=== PATIENT | male | born 1955 | race Caucasian/White ===

== ENCOUNTER → 2018-04-03 | Emergency (ER) | payer OTHER ==
[~2018-04-03] VITALS: Ht 180.3 cm; Wt 102.1 kg
== END | disposition left against medical advice (07) ==
LOC: ER 21:50
DX: Z53.20 Procedure and treatment not carried out because of patient's decision for unspecified reasons (principal)

== ENCOUNTER 2020-07-19 09:28 | Outpatient (CLI) | payer OTHER | END 2020-07-19 15:43 | disposition home or self-care (01) | LOC: LAB 09:28 | DX: Z20.828 Contact with and (suspected) exposure to other viral communicable diseases (principal) ==

== ENCOUNTER 2020-07-27 05:00 | Outpatient (CLI) | payer OTHER | END 2020-07-27 15:41 | disposition home or self-care (01) | LOC: PPH VACUNA 05:00 → EDBD 05:00 → PPH VACUNA 15:41 | DX: Z23 Encounter for immunization (principal) | CPT/HCPCS: 90688; G0008 ==

== ENCOUNTER → 2020-08-22 11:22 | Outpatient (CLI) | payer OTHER | END | disposition home or self-care (01) | LOC: LAB 11:22 | PROVIDERS: ATTEND Otolaryngology Otology & Neurotology | DX: I89.8 Other specified noninfective disorders of lymphatic vessels and lymph nodes (principal); Z00.00 Encounter for general adult medical examination without abnormal findings ==

== ENCOUNTER 2020-10-25 14:36 | Outpatient (CLI) | payer OTHER | END 2020-10-25 18:00 | disposition home or self-care (01) | LOC: PPH VACUNA 14:36 | PROVIDERS: ATTEND Emergency Medicine Pediatric Emergency Medicine | DX: Z23 Encounter for immunization (principal) ==

== ENCOUNTER 2020-11-15 | Outpatient (CLI) | payer OTHER | END 2020-11-15 14:19 | disposition home or self-care (01) | LOC: PPH VACUNA | PROVIDERS: ATTEND Emergency Medicine Pediatric Emergency Medicine | DX: Z23 Encounter for immunization (principal) ==

== ENCOUNTER 2021-08-07 08:00 | Outpatient (CLI) | payer OTHER | END 2021-08-07 08:30 | disposition home or self-care (01) | LOC: PPH VACUNA 08:00 | PROVIDERS: ATTEND Emergency Medicine Pediatric Emergency Medicine | DX: Z23 Encounter for immunization (principal) ==

== ENCOUNTER 2022-03-12 08:00 | Outpatient (CLI) | payer OTHER | END 2022-03-12 08:30 | disposition home or self-care (01) | LOC: PPH VACUNA 08:00 | PROVIDERS: ATTEND Emergency Medicine Pediatric Emergency Medicine | DX: Z23 Encounter for immunization (principal); Z71.85 Encounter for immunization safety counseling ==

== ENCOUNTER 2022-07-25 09:00 | Outpatient (CLI) | payer OTHER | END 2022-07-25 09:05 | disposition home or self-care (01) | LOC: PPH VACUNA 09:00 | PROVIDERS: ATTEND Emergency Medicine Pediatric Emergency Medicine | DX: Z23 Encounter for immunization (principal) ==